=== PATIENT | female | born 1980 | race Caucasian/White ===

== ENCOUNTER 2019-07-07 18:47 | Emergency (ER) | payer OTHER ==
[~2019-07-07] VITALS: Ht 160 cm; Wt 74.4 kg
--- OUTSIDE RECORDS SUMMARY | 2019-07-07 18:49 | XMS REPORT ---
Author Author [facility] Address Unknown Phone Unavailable Care Team Providers Care Curriculum Coordinator Name Role Phone BRIDGETTE BROOKS Unavailable Unavailable Problems This patient has no known problems. Allergies, Adverse Reactions, Alerts This patient has no known allergies or adverse reactions. Medications This patient has no known medications. Results Test Description Test Time Test Comments Text Results Atomic Results Result Comments T4, FREE 2017-04-27 18:43:00 FREE T4 (BEAKER) (test kcnp=018) 0.74 ng/dL 0.70-1.48 TSH/FREE T4 IF [id number] 18:13:00* Test Item Value Reference Range Comments THYROID STIMULATING HORMONE (BEAKER) (test zmtn=462) 7.11 uIU/mL 0.35-4.94 TISSUE [id number] 15:54:00Surgical Pathology Report Case: [id number] Authorizing Provider: Esthela Brooks MD Ordering Provider: Esthela Brooks MD Ordering Location: [facility] PERIOPERATIVE Collected: 01/28/2017 0812 SERVICES Pathologist: Enedina Parrish MD Received: 01/28/2017 1116 Specimens: A) - Lymph Node, Cent ral neck lymph node B) - Thyroid, Right, Right thyroid lobe A. LYMPH NODES, CENTRAL REGION IN NECK, DISSECTION: - ONE LYMPH NODE WITHOUT D IAGNOSTIC CHANGES - THYROID FRAGMENT WITH FOCAL LYMPHOCYTIC THYROIDITIS B. 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 A separate cytologic sample also from the right lobe of the thyroid was nondiagnostic (from 06/11/2016, [id number]).[id number] single thyroid noduleA. Central neck lymph node; B. Right thyroid lobeSpecimen A: Rec eived in formalin labeled "central neck lymph node" are two pink-beltre irregular l ymph nodes measuring 0.5 cm and 0.6 cm in greatest dimension. The specimen is en tirely submitted in cassettes A1. Specimen B: Received in formalin labeled "thyr oid, right" is a 6.9 gm, 3.5 x 2.6 x 1.0 cm thyroid lobe. The capsular surface i s purple-beltre to red, dusky, and focally ragged. The specimen is serially section ed to reveal a 2.0 x 1.5 x 1.0 cm fairly well-circumscribed light beltre focally he morrhagic rubbery mass which abuts the capsule in the mid and lower pole. No fir m areas are identified. The surrounding uninvolved thyroid parenchyma is dark re d homogeneous, dense and unremarkable. Ink code: Posterior - black, anterior - b lue.The specimen is entirely submitted as follows: B1, parallel isthmus resectio n margin; B2-B10, remainder of thyroid lobe progressing from superior to inferio r. DB/Lisa. The sample designated "cervical lymph node", shows one lymph node wit h some reactive sinusoidal changes and congestion. No atypia or malignancy is no ashley. The other fragment shows thyroid with focal lymphocytic thyroiditis, and wi thout atypia. Surrounded by a small amount of connective tissue. No parathyroid tissue is identified. B. 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 No invasion of the very thin capsular tissue is noted, e ither vascular or capsular. In some regions, there is clot along the capsular flanagan rface, and it is focally torn, possibly secondary to surgical excision. The surr ounding thyroid shows some palpation thyroiditis and lymphocytic thyroiditis. 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 Other significant features are not noted. [id number] 10:25:00* Test Item Value Reference Range Comments HEMOGLOBIN (HARMAN) (test eqdc=125) 13.1 GM/DL 12.0-15.0
--- OUTSIDE RECORDS SUMMARY | 2019-07-07 18:49 | XMS REPORT | Clinical Summary ---
Author Author [facility] Address Unknown Phone Unavailable Care Team Providers Care Import/Export Agent Name Role Phone Odell Caballero PCP Allergies No Known Allergies Medications End Date Status Medication Sig Dispensed Refills Start Date Active ergocalciferol (VITAMIN Take 50,000 0 D2) 50,000 unit capsule Units by mouth once a week. Active escitalopram oxalate Take 10 mg by 0 (LEXAPRO) 10 MG tablet mouth daily. Active acyclovir (ZOVIRAX) 200 Take 200 mg 0 MG capsule by mouth 3 (three) times daily. Active UNKNOWN 1 tablet 0 daily control pill . Active multivitamin per tablet Take 1 tablet 0 by mouth daily. Active Problems No known active problems Social History Date Tobacco Use Types Packs/Day Years Used Never Smoker Smokeless Tobacco: Never Used Alcohol Use Drinks/Week oz/Week Comments No Sex Assigned at Date Recorded Not on file Industry Job Start Date Occupation Not on file Not on file Not on file Travel End Travel History Travel Start No recent travel history available. Last Filed Vital Signs Not on file Plan of Treatment Not on file Results Not on fileafter 07/06/2018 Insurance Payer Benefit Subscriber ID Type Phone Address Plan / Group AETNA - [employer] C[employer] AETNA HMO xxxxxxxxxx HMO/POS POS QPOS
--- OUTSIDE RECORDS SUMMARY | 2019-07-07 18:49 | XMS REPORT | Encounter Summary ---
Author Organization Unknown Address [address] [place] [address] Phone [phone] Reason for Visit Medical Complaint Instructions 1. Influenza-like symptoms rapid flu (A+B) Tamiflu 75 mg capsule Bromfed DM 2 mg-30 mg-10 mg/5 mL syrup ProAir HFA 90 mcg/actuation aerosol inhaler influenza (flu): care instructions 2. On examination - fever 3. Body mass index 30+ - obesity body mass index: care instructions learning about healthy weight Discussion Note: None recorded. Plan of Care Patient Instructions Your Care Instructions Influenza (flu) is an infection in the lungs and breathing passages. It is caused by the influenza virus. There are different strains, or types, of the flu virus from year to year. Unlike the common cold, the flu comes on suddenly and the symptoms, such as a cough, congestion, fever, chills, fatigue, aches, and pains, are more severe. These symptoms may last up to 10 days. Although the flu can make you feel very sick, it usually doesn't cause serious health problems. Home treatment is usually all you need for flu symptoms. But your doctor may prescribe antiviral medicine to prevent other health problems, such as pneumonia, from developing. Older people and those who have a long-term health condition, such as lung disease, are most at risk for having pneumonia or other health problems. Follow-up care is a savage part of your treatment and safety. Be sure to make and go to all appointments, and call your doctor if you are having problems. It's also a good idea to know your test results and keep a list of the medicines you take. How can you care for yourself at home? Get plenty of rest. Drink plenty of fluids, enough so that your urine is light yellow or clear like water. If you have kidney, heart, or liver disease and have to limit fluids, talk with your doctor before you increase the amount of fluids you drink. Take an tdur-lor-qilisnq pain medicine if needed, such as acetaminophen (Tylenol), ibuprofen (Advil, Motrin), or naproxen (Aleve), to relieve fever, headache, and muscle aches. Read and follow all instructions on the label. No one younger than 20 should take aspirin. It has been linked to Neil syndrome, a serious illness. Do not smoke. Smoking can make the flu worse. If you need help quitting, talk to your doctor about stop-smoking programs and medicines. These can increase your chances of quitting for good. Breathe moist air from a hot shower or from a sink filled with hot water to help clear a stuffy nose. Before you use cough and cold medicines, check the label. These medicines may not be safe for young children or for people with certain health problems. If the skin around your nose and lips becomes sore, put some petroleum jelly on the area. To ease coughing: Drink fluids to soothe a scratchy throat. Suck on cough drops or plain hard candy. Take an lwwo-bif-mgiwcvz cough medicine that contains dextromethorphan to help you get some sleep. Read and follow all instructions on the label. Raise your head at night with an extra pillow. This may help you rest if coughing keeps you awake. Take any prescribed medicine exactly as directed. Call your doctor if you think you are having a problem with your medicine. To avoid spreading the flu Wash your hands regularly, and keep your hands away from your face. Stay home from school, work, and other public places until you are feeling better and your fever has been gone for at least 24 hours. The fever needs to have gone away on its own without the help of medicine. Ask people living with you to talk to their doctors about preventing the flu. They may get antiviral medicine to keep from getting the flu from you. To prevent the flu in the future, get a flu vaccine every fall. Encourage people living with you to get the vaccine. Cover your mouth when you cough or sneeze. When should you call for help? Call 911 anytime you think you may need emergency care. For example, call if: You have severe trouble breathing. Call your doctor now or seek immediate medical care if: You have new or worse trouble breathing. You seem to be getting much sicker. You feel very sleepy or confused. You have a new or higher fever. You get a new rash. Watch closely for changes in your health, and be sure to contact your doctor if: You begin to get better and then get worse. You are not getting better after 1 week. Reminders Provider Appointments None recorded. Lab Rapid Flu (A+B) 10/27/2018 [facility] Referral None recorded. Procedures None recorded. Surgeries None recorded. Imaging None recorded. Medications Name Start Date acyclovir acyclovir 400 mg tablet Bromfed DM 2 mg-30 mg-10 mg/5 mL syrup Take 10 mL every 4 hours by oral route. colestipol 1 gram tablet ergocalciferol (vitamin D2) 50,000 unit capsule escitalopram 10 mg tablet Take 1 tablet every day by oral route. Femynor 0.25 mg-35 mcg tablet IBU 800 mg tablet TAKE ONE (1) TABLET(S) BY MOUTH THREE TIMES A DAY NEEDED. levothyroxine 50 mcg tablet Lidocaine Viscous 2 % mucosal solution GARGLE AND SPIT 15 ML EVERY 3 HOURS. ProAir HFA 90 mcg/actuation aerosol inhaler Inhale 2 puffs every 4 hours by inhalation route. Synthroid 25 mcg tablet Tamiflu 75 mg capsule Take 1 capsule every day by oral route for 10 days. Medications Administered None recorded. Vitals Height Weight BMI Blood Pressure 5 ft 3 in 183 lbs 32.4 kg/m2 110/78 mm[Hg] Lab Results Date Name Specimen Result Interpretation Description Value Range Status Address Rapid Flu (A+B) Influenza a negative [facility]: [address] [place] [address] Influenza B negative [facility]: [address] [place] [address] Allergies Code Code System Name Reaction Severity Status Onset NKDA Problems No Known Problems Procedures Date Name Performed by Delivery Information not available Vaccine List Vaccine Type Td (adult) preservative free 01/02/20170.5 mL Social History Smoking Status Never Smoker Past Encounters 10/27/2018 Influenza-like Symptoms; On Examination - Fever; Body Mass Index 30+ - Obesity [facility]: [address] [place] [address], Ph. History of Present Illness Ubrhccl-Qorla-Xwa Reported By: Patient HPI: Duration: 1 days. Severity: highest temperature 100.5. Context: no tick/insect bites, no recent travel, no new medications, ill contacts. Associated Symptoms: no rash, no lethargy, fever/chills, headache, muscle aches, tired (fatigue), cough, nasal passage blockage (stuffiness). Modifying Factors OTC medication Review of Systems:ROS as noted in the HPI Review of Systems Basic Reported By: Patient Physical Exam Adult Basic, Adult Female Complete Reported By: Patient Constitutional: General Appearance: healthy-appearing, well-nourished, well-developed. Level of Distress: acutely ill. Ambulation: ambulating normally Psychiatric: Mental Status: active and alert. Orientation: to time, to place, to person Mtc-Cwnp-Wnxcz-Throat: Ears: no lesions on external ear, no outer ear tenderness, EACs clear, TMs clear. Hearing: no hearing loss. Nose: no lesions on external nose, nares patent, no septal deviation, nasal passages clear, no sinus tenderness, no nasal discharge. Lips, Teeth, and Gums: no mouth or lip ulcers, no bleeding gums, normal dentition. Oropharynx: moist mucous membranes, no erythema, no exudates, tonsils not enlarged Lungs: Respiratory effort: no dyspnea, no tachypnea, no use of accessory muscles, no intercostal retractions. Auscultation: breath sounds normal Cardiovascular: Heart Auscultation: RRR, no murmurs
--- OUTSIDE RECORDS SUMMARY | 2019-07-07 18:49 | XMS REPORT | Encounter Summary ---
Author Organization Unknown Address [address] [place] [address] Phone [phone] Reason for Visit Medical Complaint Instructions 1. Dog bite of hand Augmentin 875 mg-125 mg tablet DECAVAC (PF) 5 Lf unit-2 Lf unit/0.5 mL intramuscular suspension 2. Puncture wound of hand Discussion Note: None recorded. Patient educational handouts: No information available. Plan of Care Patient Instructions take medication as directed. [facility]. spoke with jeffry and report was given. Reminders Provider Appointments None recorded. Lab None recorded. Referral None recorded. Procedures None recorded. Surgeries None recorded. Imaging None recorded. Medications Name Start Date acyclovir 400 mg tablet amoxicillin 875 mg-potassium clavulanate 125 mg tablet cefprozil 500 mg tablet ergocalciferol (vitamin D2) 50,000 unit capsule escitalopram 10 mg tablet Estarylla 0.25 mg-35 mcg tablet prednisone 20 mg tablet Medications Administered None recorded. Vitals Height Weight BMI Blood Pressure 5 ft 3 in 184 lbs 32.6 118/78 Lab Results None recorded. Allergies Name Reaction Severity Onset Codeine Problems Name Status Onset Date Source Bacterial Conjunctivitis Active Encounter Acute Sinusitis Active Encounter Acute Pharyngitis Active Encounter Procedures Date Name Performed by Delivery Information not available Vaccine List Vaccine Type Td (adult) preservative free 01/02/20170.5 mL Social History Smoking Status Never Smoker Past Encounters 01/02/2017 Dog Bite of Hand; Puncture Wound of Hand [facility]: [address] [place] [address], Ph. History of Present Illness Simple Laceration Reported By: Patient HPI: Location arm, hand. Quality: no pain, no bleeding. Severity: mild, moderate. Onset/Timin hours ago. Context ; dog bite. Modifying factors OTC medication, cleaned wound at home. Associated Symptoms: none, no fever/chills, no muscle aches, no drainage, no ecchymosis, no instability, no numbness/tingling, no swelling/redness, no warmth, no foreign body Review of Systems:ROS as noted in the HPI Review of Systems Basic Reported By: Patient Physical Exam Adult Basic, Adult Female Complete Reported By: Patient Constitutional: General Appearance: healthy-appearing, well-nourished, well-developed. Level of Distress: NAD. Ambulation: ambulating normally Psychiatric: Mental Status: active and alert Lungs: Respiratory effort: no dyspnea, no tachypnea, no use of accessory muscles, no intercostal retractions. Auscultation: breath sounds normal Cardiovascular: Heart Auscultation: RRR, no murmurs Neurologic: Sensation: grossly intact Skin: Inspection and palpation: ; multiple puncture wounds to right hand. no bleeding
--- OUTSIDE RECORDS SUMMARY | 2019-07-07 18:49 | XMS REPORT | Encounter Summary ---
Author Organization Unknown Address [address] [place] [address] Phone [phone] Reason for Visit Medical Complaint Instructions 1. Influenza-like symptoms ibuprofen 800 mg tablet Tamiflu 75 mg capsule rapid flu (A+B) influenza (flu): care instructions rapid strep group A, throat 2. Pharyngitis Lidocaine Viscous 2 % mucosal solution sore throat: care instructions Discussion Note Pt is in no apparent acute distress; Verbalizes understanding of and agreement with all instructions with no questions at this time. Plan of Care Patient Instructions Take all medications as directed. Follow up with your PCP as needed. Seek additional medical care with new or worsening symptoms, or if symptoms do not resolve in 3-4 days. Thank you for allowing me to participate in your healthcare! Reminders Provider Appointments None recorded. Lab Rapid Flu (A+B) 03/04/2018 [facility] Rapid Strep Group a, Throat 03/04/2018 [facility] Referral None recorded. Procedures None recorded. Surgeries None recorded. Imaging None recorded. Medications Name Start Date acyclovir colestipol 1 gram tablet ergocalciferol (vitamin D2) 50,000 unit capsule escitalopram 10 mg tablet Take 1 tablet every day by oral route. Femynor 0.25 mg-35 mcg tablet ibuprofen 800 mg tablet Take 1 tablet 3 times a day by oral route as needed. Lidocaine Viscous 2 % mucosal solution Take 15 mL every 3 hours by oral route. max 300 mg/dose, 8 dose/day; gargle and spit as needed for sore throat pain. Tamiflu 75 mg capsule Take 1 capsule twice a day by oral route for 5 days. Medications Administered None recorded. Vitals Height Weight BMI Blood Pressure 5 ft 3 in 186 lbs 32.9 kg/m2 118/72 mm[Hg] Lab Results Date Name Specimen Result Interpretation Description Value Range Status Address Rapid Strep Group a, Throat Result negative [facility]: [address] [place] [address] Rapid Flu (A+B) Influenza a negative [facility]: [address] [facility] Influenza B negative [facility]: [address] [facility] Allergies Code Code System Name Reaction Severity Status Onset NKDA Problems No Known Problems Procedures Date Name Performed by Delivery Information not available Vaccine List Vaccine Type Td (adult) preservative free 01/02/20170.5 mL Social History Smoking Status Never Smoker Past Encounters 03/04/2018 Influenza-like Symptoms; Pharyngitis [facility] Castillo, [facility]: [address] [place] [address], Ph. History of Present Illness Vkrnc-Hsvknmotjt-Twntypq Reported By: Patient HPI: Quality: sore throat, nasal/sinus congestion, dry cough. Duration: 2days. Context: no foreign travel, non-smoker, sick contact. Modifying factors: OTC medication. Associated Symptoms: no sputum production, no shortness of breath, no wheezing, no change in number of pillows needed to sleep at night, no sweats, no significant weight gain, no significant weight loss, no morning cough, no vomiting, no diarrhea, no rash, no nausea, no fever, no headache, fatigue, sore throat, fever, muscle aches Review of Systems:ROS as noted in the HPI Review of Systems Basic Reported By: Patient Physical Exam Adult Basic Reported By: Patient Constitutional: General Appearance: healthy-appearing, well-nourished, well-developed. Level of Distress: NAD. Ambulation: ambulating normally Psychiatric: Mental Status: active and alert. Orientation: to time, to place, to person Eyes: Lids and Conjunctivae: non-injected, no discharge, no pallor. Pupils: PERRLA. Corneas: grossly intact. EOM: EOMI. Lens: clear. Sclerae: non-icteric Vvk-Ivju-Gvkmr-Throat: Ears: no lesions on external ear, no outer ear tenderness, EACs clear, TMs clear. Hearing: no hearing loss. Nose: no lesions on external nose, nares patent, no septal deviation, nasal passages clear, no sinus tenderness, post nasal drip. Lips, Teeth, and Gums: no mouth or lip ulcers. Oropharynx: moist mucous membranes, no exudates, erythema, tonsils enlarged 2+ Neck: Neck: supple, trachea midline, no masses, FROM. Lymph Nodes: no supraclavicular LAD, anterior cervical LAD. Thyroid: no enlargement, non-tender, no nodules Lungs: Respiratory effort: no dyspnea, no tachypnea, no use of accessory muscles, no intercostal retractions. Auscultation: breath sounds normal Cardiovascular: Heart Auscultation: RRR, no murmurs Neurologic: Gait and Station: normal gait, normal station. Sensation: grossly intact Skin: Inspection and palpation: no rash, no lesions
--- OUTSIDE RECORDS SUMMARY | 2019-07-07 18:49 | XMS REPORT | Encounter Summary ---
Author Organization Unknown Address [address] [place] [address] Phone [phone] Reason for Visit Medical Complaint Instructions 1. Dog bite of hand Augmentin 875 mg-125 mg tablet DECAVAC (PF) 5 Lf unit-2 Lf unit/0.5 mL intramuscular suspension Discussion Note: None recorded. Patient educational handouts: No information available. Plan of Care Patient Instructions take medication as directed. follow [facility] [place]. spoke with jeffry and report was given. [...] Smoker Past Encounters 01/02/2017 Dog Bite of Hand [facility]: [address] [place] [address], Ph. History of Present Illness Simple Laceration [...]
--- OUTSIDE RECORDS SUMMARY | 2019-07-07 18:49 | XMS REPORT | Continuity of Care Document ---
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 [employer] Unavailable Unavailable Problems Problem Status Onset Date Classification Date Reported Comments Source Body mass index 30+ - obesity 10/28/2018 Diagnosis 10/28/2018 [facility] On examination - fever 10/28/2018 Diagnosis 10/28/2018 [facility] Influenza-like symptoms 10/28/2018 Diagnosis 10/28/2018 [facility] Pharyngitis 03/04/2018 Diagnosis 03/04/2018 [facility] Puncture wound of hand 01/06/2017 Diagnosis 01/06/2017 [facility] Dog bite of hand 01/02/2017 Diagnosis 01/06/2017 [facility] Bacterial conjunctivitis Problem 01/06/2017 [facility] Acute sinusitis Problem 01/06/2017 [facility] Acute pharyngitis Problem 01/06/2017 [facility] Medications Medication Details Route Status Patient Instructions Ordering Provider Order Date Source acyclovir acyclovir Active [facility] Colestipol Hydrochloride 1000 MG Oral Tablet colestipol 1 gram tablet Active [facility] Ergocalciferol 07577 UNT Oral Capsule ergocalciferol (vitamin D2) 50,000 unit capsule Active [facility] Escitalopram 10 MG Oral Tablet escitalopram 10 mg tablet Take 1 tablet every day by oral route. Active [facility] Femynor 0.25 mg-35 mcg tablet Femynor 0.25 mg-35 mcg tablet Active [facility] Ibuprofen 800 MG Oral Tablet ibuprofen 800 mg tablet Take 1 tablet 3 times a day by oral route as needed. Active [facility] Lidocaine Hydrochloride 20 MG/ML Mucous Membrane Topical Solution Lidocaine Viscous 2 % mucosal solution GARGLE AND SPIT 15 ML EVERY 3 HOURS. Active [facility] Oseltamivir 75 MG Oral Capsule [Tamiflu] Tamiflu 75 mg capsule Take 1 capsule every day by oral route for 10 days. Active [facility] Acyclovir 400 MG Oral Tablet acyclovir 400 mg tablet Active [facility] Brompheniramine Maleate 0.4 MG/ML / Dextromethorphan Hydrobromide 2 MG/ML / Pseudoephedrine Hydrochloride 6 MG/ML Oral Solution [Bromfed DM] Bromfed DM 2 mg-30 mg-10 mg/5 mL syrup Take 10 mL every 4 hours by oral route. Active [facility] Ibuprofen 800 MG Oral Tablet [Ibu] IBU 800 mg tablet TAKE ONE (1) TABLET(S) BY MOUTH THREE TIMES A DAY NEEDED. Active [facility] Levothyroxine Sodium 0.05 MG Oral Tablet levothyroxine 50 mcg tablet Active [facility] Albuterol 0.09 MG/ACTUAT Metered Dose Inhaler ProAir HFA 90 mcg/actuation aerosol inhaler Inhale 2 puffs every 4 hours by inhalation route. Active [facility] Levothyroxine Sodium 0.025 MG Oral Tablet [Synthroid] Synthroid 25 mcg tablet Active [facility] Amoxicillin 875 MG / Clavulanate 125 MG Oral Tablet amoxicillin 875 mg-potassium clavulanate 125 mg tablet Active [facility] cefprozil 500 MG Oral Tablet cefprozil 500 mg tablet Active [facility] Estarylla 0.25 mg-35 mcg tablet Estarylla 0.25 mg-35 mcg tablet Active [facility] Prednisone 20 MG Oral Tablet prednisone 20 mg tablet Active [facility] Allergies, Adverse Reactions, Alerts Substance Category Reaction Severity Reaction type Status Date Reported Comments Source Codeine Allergy to substance 10/16/2010 [facility] Immunizations Immunization Date Given Site Status Last Updated Comments Source Td (adult) preservative free 01/03/2017 completed [facility] Results Order Name Results Value Reference Range Date Interpretation Comments Source Influenza A negative 10/27/2018 [facility] Influenza B negative 10/27/2018 [facility] RESULT negative 03/04/2018 [facility] Influenza A negative 03/04/2018 [facility] Influenza B negative 03/04/2018 [facility] Pathology Reports No Data Provided for This Section Diagnostic Reports No Data Provided for This Section Consultation Notes No Data Provided for This Section Discharge Summaries No Data Provided for This Section History and Physicals No Data Provided for This Section Vital Signs Vital Sign Value Date Comments Source Diastolic (mm Hg) 78 10/27/2018 [facility] Height 63 10/27/2018 [facility] Systolic (mm Hg) 110 10/27/2018 [facility] Weight 183 10/27/2018 [facility] Diastolic (mm Hg) 72 03/04/2018 [facility] Height 63 03/04/2018 [facility] Systolic (mm Hg) 118 03/04/2018 [facility] Weight 186 03/04/2018 [facility] Diastolic (mm Hg) 78 01/02/2017 [facility] Height 63 01/02/2017 [facility] Systolic (mm Hg) 118 01/02/2017 [facility] Weight 184 01/02/2017 [facility] Encounters Location Location Details Encounter Type Encounter Number Reason For Visit Attending Provider ADM Date DC Date Status Source [place] - [facility] - [id number] hCapin Taylor [facility]: [address], [place] [address], Ph. [phone] [id number] Chapin Claudia 01/02/2017 [facility] [place] [facility] - [id number] Chapin Taylor [facility]: [address], [place] [address], Ph. [id number] Chapin Taylor 01/02/2017 [facility] [place] [facility] - [id number] Chapin Taylor [facility]: [address], [place] [address], Ph. [id number] Chapin Taylor 01/02/2017 [facility] [place] [facility] - [id number] Shiva Castillo [facility]C: [address], [place] [address], Ph. [id number] Shiva Castillo 03/04/2018 [facility] [place] [facility] - [id number] Master Retana [facility]: [address], [place] [address], Ph. [id number] Master Lainey 10/27/2018 [facility] Procedures Procedure Code Date Perfomer Comments Source Delivery 97092 [facility] Delivery [facility] Assessment and Plan No Data Provided for This Section Plan of Care No Data Provided for This Section Social History Social History Date Source Smoking Status Never Smoker 03/16/2011 [facility] Family History No Data Provided for This Section Advance Directives No Data Provided for This Section Functional Status No Data Provided for This Section
--- OUTSIDE RECORDS SUMMARY | 2019-07-07 18:49 | XMS REPORT | Encounter Summary ---
Author Organization Unknown Address [address] [place] [address] Phone [phone] Reason for Visit Medical Complaint Instructions 1. Dog bite of hand Augmentin 875 mg-125 mg tablet DECAVAC (PF) 5 Lf unit-2 Lf unit/0.5 mL intramuscular suspension Discussion Note: None recorded. Patient educational handouts: No information available. Plan of Care Patient Instructions take medication as directed. [facility] [place] spoke with jeffry [...] Dog Bite of Hand LON [facility]: [address] [place] [address], Ph. History of Present Illness Simple Laceration [...]
[2019-07-07 19:37] LABS: BASOPHILS % 0.5 % (0.0-1.0); EOSINOPHILS # (AUTO) 0.1 (0.0-0.4); EOSINOPHILS % 1.7 % (0.0-6.0); HEMATOCRIT 39.3 % (34.2-44.1); HEMOGLOBIN 12.9 g/dL (12.0-16.0); LYMPHOCYTES # (AUTO) 1.9 (1.0-3.2); LYMPHOCYTES % 28.7 % (18.0-39.1); MEAN CORPUSCULAR HEMOGLOBIN 31.1 pg (28-32); MEAN CORPUSCULAR HGB CONC 32.8 g/dL (31-35); MEAN CORPUSCULAR VOLUME 94.7 fL (81-99); MONOCYTES # (AUTO) 0.7 (0.2-0.8); MONOCYTES % 10.1 % (4.4-11.3); NEUTROPHILS # (AUTO) 3.8 (2.1-6.9); NEUTROPHILS % 58.7 % (38.7-80.0); PLATELET COUNT 307 x10e3/uL (140-360); RED BLOOD COUNT 4.15 x10e6/uL (3.6-5.1); RED CELL DISTRIBUTION WIDTH 12.4 % (11.7-14.4)
[2019-07-07 19:51] LABS: ALANINE AMINOTRANSFERASE 12 IU/L (0-55); ALBUMIN 4.2 g/dL (3.5-5.0); ALBUMIN/GLOBULIN RATIO 1.4 (0.8-2.0); ALKALINE PHOSPHATASE 75 IU/L (40-150); ANION GAP 11.6 mmol/L (8-16); BLOOD UREA NITROGEN 16 mg/dL (7-26); BUN/CREATININE RATIO 19 (6-25); CARBON DIOXIDE 26 mmol/L (22-29); CHLORIDE 103 mmol/L (98-107); CREATINE KINASE 114 IU/L (29-168); CREATININE, SERUM 0.84 mg/dL (0.57-1.11); EST GLOMERULAR FILTRATION RATE > 60 ML/MIN (60-); GLUCOSE 106 mg/dL (74-118); POTASSIUM 3.6 mmol/L (3.5-5.1); SODIUM 137 mmol/L (136-145)
--- NOTE | 2019-07-07 20:06 | Diagnostic Imaging Report ---
EXAMINATION: CHEST 2 VIEWS INDICATION: ^CP/SOB ^[id number] ^[id number] COMPARISON: None FINDINGS: PA and lateral views TUBES and LINES: None. LUNGS: Lungs are well inflated. There is no evidence of pneumonia or pulmonary edema. Tiny left mid to lower lung nodular densities, likely calcified granulomas. PLEURA: No pleural effusion or pneumothorax. HEART AND MEDIASTINUM: The cardiomediastinal silhouette is unremarkable. BONES AND SOFT TISSUES: No acute osseous lesion. Soft tissues are unremarkable. UPPER ABDOMEN: No free air under the diaphragm. IMPRESSION: No acute thoracic abnormality. Signed by: Dr. Cliff Blum MD on 07/07/2019 8:03 PM
[2019-07-07 20:49] VITALS: BP 117/73
== END 2019-07-07 20:59 | disposition home or self-care (01) ==
LOC: ER 18:47
DX: R07.89 Other chest pain (principal)
CPT/HCPCS: 36415; 71046; 80053; 82550; 82553; 83880; 84484; 85025; 85379; 93005; 99284

== ENCOUNTER 2021-08-20 08:26 | Emergency (ER) | payer OTHER ==
[~2021-08-20] VITALS: Ht 160 cm; Wt 77.1 kg
[2021-08-20 08:47] LABS: BASOPHILS % 0.5 % (0.0-1.0); EOSINOPHILS # (AUTO) 0.1 (0.0-0.4); EOSINOPHILS % 1.4 % (0.0-6.0); HEMATOCRIT 38.9 % (34.2-44.1); HEMOGLOBIN 12.7 g/dL (12.0-16.0); LYMPHOCYTES # (AUTO) 1.5 (1.0-3.2); LYMPHOCYTES % 34.6 % (18.0-39.1); MEAN CORPUSCULAR HEMOGLOBIN 31.5 pg (28-32); MEAN CORPUSCULAR HGB CONC 32.6 g/dL (31-35); MEAN CORPUSCULAR VOLUME 96.5 fL (81-99); MONOCYTES # (AUTO) 0.5 (0.2-0.8); MONOCYTES % 10.7 % (4.4-11.3); NEUTROPHILS # (AUTO) 2.2 (2.1-6.9); NEUTROPHILS % 52.6 % (38.7-80.0); PLATELET COUNT 283 x10e3/uL (140-360); RED BLOOD COUNT 4.03 x10e6/uL (3.6-5.1); RED CELL DISTRIBUTION WIDTH 11.7 % (11.7-14.4)
[2021-08-20 09:06] LABS: LIPASE 21 U/L (8-78)
[2021-08-20 09:34] LABS: ALANINE AMINOTRANSFERASE 20 IU/L (0-55); ALBUMIN 4.2 g/dL (3.5-5.0); ALBUMIN/GLOBULIN RATIO 1.4 (0.8-2.0); ALKALINE PHOSPHATASE 60 IU/L (40-150); ANION GAP 11.3 mmol/L (8-16); BLOOD UREA NITROGEN 14 mg/dL (7-26); BUN/CREATININE RATIO 19 (6-25); CALCIUM 9.3 mg/dL (8.4-10.2); CARBON DIOXIDE 25 mmol/L (22-29); CHLORIDE 108 mmol/L (98-107); CREATINE KINASE 124 IU/L (29-168); CREATININE, SERUM 0.74 mg/dL (0.57-1.11); EST GLOMERULAR FILTRATION RATE 86 ML/MIN (60-); GLUCOSE 85 mg/dL (74-118); POTASSIUM 4.3 mmol/L (3.5-5.1); SODIUM 140 mmol/L (136-145)
[2021-08-20] MEDS ORDERED: KETOROLAC TROMETHAMINE 30 MG/ML VIAL IV NR (09:45)
[2021-08-20] MEDS ORDERED: SODIUM CHLORIDE 0.9% 1000ML 1,000 ML IV STA (09:52)
[2021-08-20] MEDS ORDERED: IOPAMIDOL 370 MG/ML 200 ML INFUS..BTL INJ ONE (10:53)
[2021-08-20] MEDS ORDERED: SODIUM CHLORIDE 0.9% 50ML 50 ML ONE (10:53)
== END 2021-08-20 11:30 | disposition home or self-care (01) ==
LOC: ER 08:53
DX: R07.89 Other chest pain (principal); R09.1 Pleurisy
CPT/HCPCS: 36415; 71045; 71260; 80053; 82550; 82553; 83690; 83735; 84484; 84702; 85025; 85379; 93005; 99284; J1885; J7030; Q9967